=== PATIENT | female | born 1960 | race Caucasian/White ===

== ENCOUNTER → 2018-05-16 00:19 | Outpatient (CLI) | payer MEDICAID, SELFPAY ==
--- NOTE | 2018-05-16 09:59 | DI.REPORT_ITS ---
SYMPTOM/DIAGNOSIS: PATIENT WITH NL ENDOMETRIAL BX WITH PMB N95.0 POSTMENOPAUSAL BLEEDING PELVIC ULTRASOUND: Transabdominal and transvaginal examination was performed. There are no priors for comparison. The uterus measures 8.8 cm long by 4.7 cm AP by 5.8 cm transverse. The endometrial stripe is within normal limits at 0.5 cm. No myometrial mass is seen. Incidental note is made of a small cervical Nabothian cyst. The ovaries were not visualized transabdominally or transvaginally. No adnexal masses free pelvic fluid or hydronephrosis is identified. IMPRESSION: Non visualization of the ovaries, otherwise, negative examination.
== END ==
PROVIDERS: PCP Family Medicine; Visit Provider Obstetrics & Gynecology Gynecology
DX: N95.0 Postmenopausal bleeding (principal); N88.8 Other specified noninflammatory disorders of cervix uteri
CPT/HCPCS: 76830; 76856

== ENCOUNTER → 2018-05-21 12:09 | Outpatient (CLI) | payer MEDICAID, SELFPAY | PROVIDERS: PCP Family Medicine; Visit Provider Surgery | DX: K62.5 Hemorrhage of anus and rectum (principal); Z01.818 Encounter for other preprocedural examination ==

== ENCOUNTER 2018-06-13 13:03 | Outpatient (RCR) | payer MEDICAID, SELFPAY ==
--- NOTE | 2018-05-16 09:44 | NT_ITS ---
May 16, 2018 Larisa cancelled todays scheduled appt, rescheduled for follow up next week.
--- NOTE | 2018-05-23 09:30 | NT_ITS ---
May 23, 2018 Larisa showed 30 minutes late for todays scheduled appt. She was unable to be seen secondary to this. Reappointed for a later date.
--- NOTE | 2018-06-13 13:00 | PTTR_ITS ---
DATE: June 13, 2018 SUBJECTIVE: Larisa notes that she has been trying to perform her pelvic floor isolation daily. She has not seen any improvement overall at this time. She continues to note leakage with coughing especially heavy coughing spells. She is in hopes that the sensor will provide her more feedback to promote the contraction correctly. OBJECTIVE: Therapeutic procedures ([id number]). * X HEP review: Promoting pelvic floor isolation with focus on prolonged holds. * X Provided skilled instruction in proper exercise performance: via EMG biofeedback with use of internal vaginal sensor independently placed via patient. Average resting tone 2.3 mV. Average contraction to 10 mV with average hold for 1-2 seconds. With verbal cueing and use of the sensor was able to increase hold up to 5 seconds at 10 mV or greater. * X Provided skilled manual cues to facilitate proper muscle recruitment and/ or movement pattern: promoting isolation as well as cocontraction via hip adductor and abduction with use of light resistance band. Improved awareness with use of the EMG and sent sensor home with patient to ensure proper contraction. Will follow up in 2-3 weeks progressing self management program at that time. Direct treatment time: 30 minutes Total treatment time: 30 minutes
== END 2018-06-15 23:59 | disposition home or self-care (01) ==
LOC: PT 13:03
PROVIDERS: PCP Family Medicine; Referring Provider Nurse Practitioner Gerontology; Visit Provider Nurse Practitioner Gerontology
DX: N36.44 Muscular disorders of urethra (principal); N39.3 Stress incontinence (female) (male)
CPT/HCPCS: 97110

== ENCOUNTER 2018-06-28 08:16 | Outpatient (CLI) | payer MEDICAID, SELFPAY ==
[2018-06-28 10:51] LABS: ALT 16 U/L (12-78); AST 13 U/L (15-37); Albumin 3.1 g/dL (3.4-5.0); Alkaline Phosphatase 87 U/L (46-116); Anion Gap 7.4 mmol/L (3-11); BUN 11 mg/dL (7-18); Bilirubin, Total 0.3 mg/dL (0.2-1.0); CO2 27.6 mmol/L (21.0-32.0); CREATININE 1.03 mg/dL (0.55-1.02); Calcium 8.5 mg/dL (8.5-10.1); Chloride 107 mmol/L (98-107); Cholesterol 122 mg/dL (50-200); Estimated GFR 54.66 (mL/min/1.73m2); Glucose 109 mg/dL (70-100); HDL Cholesterol 49 mg/dL (40-60); LDL CHOLESTEROL 60 mg/dL (<100); Magnesium 1.7 mg/dL (1.8-2.4); Potassium 4.1 mmol/L (3.5-5.1); Sodium 142 mmol/L (136-145); Triglyceride 108 mg/dL (30-150)
== END 2018-06-28 08:36 ==
PROVIDERS: Student in an Organized Health Care Education/Training Program; PCP Family Medicine; Visit Provider Family Medicine
DX: I25.10 Atherosclerotic heart disease of native coronary artery without angina pectoris (principal)
CPT/HCPCS: 36415; 80048; 80061; 80076; 83721; 83735

== ENCOUNTER 2018-07-02 09:34 | Outpatient (CLI) | payer MEDICAID, SELFPAY ==
--- NOTE | 2018-07-02 09:00 | NS.NUTBLAN_ITS ---
Larisa returns for follow up nutritional counseling for weight management nutrition therapy. She now eats breakfast and lunch six days per week at [employer] and she reports that she has gotten used to the portions there. She comes home and she eats a normal sized dinner meal with whatever resources she has available to her. She reports that she does buy canned fruits and vegetables now and will eat those instead of higher calorie foods that she has eaten in the past. She reports that she notices she can move better. Her weight today is 319 lbs which is down 12 pounds from when we started meeting about two months ago. Acknowledged Larisa's excellent efforts at reducing her weight. Larisa would like to continue to follow up with me as she reports it is helpful for her to be accountable to someone. She will return next month.
== END 2018-07-02 09:54 ==
PROVIDERS: PCP Family Medicine; Visit Provider Dietitian, Registered
DX: E66.2 Morbid (severe) obesity with alveolar hypoventilation (principal); Z68.41 Body mass index [BMI] 40.0-44.9, adult; Z71.3 Dietary counseling and surveillance
CPT/HCPCS: 97803

== ENCOUNTER 2018-08-15 11:03 | Outpatient (CLI) | payer MEDICAID, SELFPAY ==
--- NOTE | 2018-08-15 10:56 | DI.RAD_ITS ---
SYMPTOM/DIAGNOSIS: PAIN LEFT KNEE: AP and lateral projections are provided. The joint spaces are intact. There is mild periarticular hypertrophic spurring. No joint effusion is demonstrated. The findings are consistent with mild DJD.
== END 2018-08-15 11:23 ==
PROVIDERS: PCP Family Medicine; Visit Provider Physician Assistant Surgical
DX: M25.562 Pain in left knee (principal); M17.12 Unilateral primary osteoarthritis, left knee
CPT/HCPCS: 73560

== ENCOUNTER 2018-08-29 07:28 | Emergency (ER) | payer MEDICAID, SELFPAY ==
[2018-08-29] VITALS (35 sets, daily range): BP systolic 53–219; BP diastolic 28–172; PULSE 0–143; RESP 13–95; O2SAT 81–100
[2018-08-29] MEDS: Amiodarone 150 MG/3 ML VIAL IVP (07:27)
[2018-08-29] MEDS: Sodium Bicarbonate 50 MEQ/50 ML SYR IVP ×3 (07:27→08:15)
[2018-08-29 08:09] LABS: HCO3 11 mmol/L (22-28); pO2 368 mmHg (83-108); sO2 99 % (94-98); tCO2 12 mmol/L (22-29)
--- NOTE | 2018-08-29 08:12 | DI.RAD_ITS ---
SYMPTOMS/DIAGNOSIS: CARDIAC ARREST SUPINE AP CHEST: The patient has reportedly been resuscitated from cardiac arrest. There is an ET tube in good position. There is an NG tube, the tip of which lies below the lower margin of the film, presumably in the stomach. Mild bilateral pulmonary interstitial prominences noted, which is nonspecific and may represent shock lung or CHF. No gross pneumothorax. Appropriate follow-up studies requested.
[2018-08-29 08:15] LABS: FIO2 100 %; Site Right Radial; pCO2 70 mmHg (34-47); pH 6.82 (7.35-7.45)
[2018-08-29 08:21] LABS: Abs Immature Grans 0.66 k/cumm (0.0-0.09); HCT 42.1 % (36.0-46.0); HGB 12.7 g/dL (12.0-15.5); Mean Corp. HGB Concentration 30.2 g/dL (32.0-36.0); Mean Corpuscular Hemoglobin 29.9 pg (27.0-33.0); Mean Corpuscular Volume 99.1 fL (80-95); Mean Platelet Volume 10.5 fL (8.0-11.0); RBC 4.25 m/cumm (4.00-5.20); RBC Distribution Width 14.4 % (11.7-14.6); White Blood Cell Count 14.85 k/cumm (4.4-10.8)
[2018-08-29 08:30] LABS: INR 1.1 (1.0-3.5); PTT Activated 51.2 sec (21.0-31.4); Prothrombin Time 10.9 sec (9.3-10.8)
[2018-08-29] MEDS: Normal Saline 1,000 ML 1000 ML IV ×4 (08:31→10:40)
[2018-08-29 08:32] LABS: ALT 75 U/L (12-78); AST 83 U/L (15-37); Albumin 2.6 g/dL (3.4-5.0); Alkaline Phosphatase 104 U/L (46-116); BUN 15 mg/dL (7-18); Bilirubin, Total 0.2 mg/dL (0.2-1.0); Estimated GFR 32.88 (mL/min/1.73m2); Glucose 311 mg/dL (70-100); Magnesium 2.7 mg/dL (1.8-2.4); Sodium 140 mmol/L (136-145); Total Protein 6.9 g/dL (6.4-8.2); Troponin I 0.04 ng/mL (0.00-0.06)
--- NOTE | 2018-08-29 08:42 | W.ED.GENAD ---
Discharge Plan Disposition Patient Disposition: Discharge Details Chief Complaint: CodeBlue Clinical Impression: Cardiac arrest Primary Care Provider: Irene Chu ED Provider: Terry Curry Discharge Data Date/Time: 08/29/18 10:00 Medical Decision Making This is a 58-year-old female with a past medical history of coronary artery disease, COPD, cardiac arrest who presents for evaluation of cardiac arrest. Patient was calling 911 for shortness of breath, when she went unresponsive on the phone. EMS performed high-quality CPR for 25 minutes, developed Ross, then she went into cardiac arrest again with V. fib/V. tach, 3 shocks were given multiple doses of epi and amiodarone were given. After 45 minutes of resuscitation she still had no return to spontaneous circulation was brought to the ER. Here in the ED compressions were continued, multiple rounds of epinephrine, 30 epi drip, amiodarone, and bicarb were administered. Eventually after 30 minutes of of continued CPR the patient had Rosc. Anesthesia performed and intubation with the patient. Left femoral central line was placed. Unfortunately this was very short-lived, the patient again went into ROSC. CPR was started again. Family was contacted, and I discussed the case with the daughter who states that she wants everything done. Patient eventually achieved Rosc again on a second epinephrine drip. Currently she finished her second liter of a dirty epi drip, 4 L normal saline total. She is ventilating well, has a low blood pressure, was started on a formal epinephrine drip at initially 10, and now 20 mics. Family states that they are going to try to make it to the ER to see the patient. Laboratory workup has returned and demonstrates notable acidemia, multiple doses of bicarb have been given. I did relate to the family the low likelihood of a good and outcome, and they understand this. Additionally bedside physical exam demonstrates no corneal reflex, and fixed and dilated pupils at this time. EKG shows no signs of STEMI I do not think that TPA is indicated. 8:03 AM Rate 71, intervals normal, sinus rhythm, no ST elevation or depression, inverted T wave in V1, no Q waves. 9:39 AM Patient underwent 2 repeat episodes of Ross and subsequent CPR, most recent episode lasted greater than 30+ minutes of compressions, repeat doses of epinephrine, epi drip going at 20 mics and in spite of all this the patient had continued PEA with no organized rhythm or retained of spontaneous circulation. In spite of everything performed were unable to bring the patient back. Her daughter was at bedside, evaluate the scenario, and because of medical futility we did have to call the patient's time of at 9:18 AM. Bedside ultrasound demonstrated no signs of organized cardiac activity. We did contact the [facility] medical inpatient services and discussed the case with him. Myself and Travon both feel that this was from natural causes. I discussed the case with the family. All questions were answered. Patient will be transferred to the [facility]. Cause of cardiac arrest compounded by history of coronary artery disease, respiratory disease, morbid obesity. HPI General Date/Time Provider Initiated Documentation: 08/29/18 08:41. HPI Narrative: This is a 58-year-old female with a past medical history of coronary artery disease, respiratory disease, who presents today for cardiac arrest. Per EMS the patient called 911 for shortness of breath and while on the phone she stopped talking. When EMS arrived she was noted to be in PEA. Chest compressions were performed for 25 minutes, multiple doses of epinephrine and high quality CPR were provided and she had Kenny after the initial 25 minutes. She developed a normal blood pressure, a strong pulse, but shortly thereafter still under EMS custody the patient again went into cardiac arrest. During that time she was noted to be in a combination of PEA and V. fib/V. tach. 3 shocks were administered, one dose of 300 mg amiodarone was administered and multiple doses of epinephrine in conjunction with high-quality CPR were provided for an additional 45 minutes. Patient was then brought to the ER after 1 hour of resuscitation still in cardiac arrest. Currently the patient has no complaints secondary to be obtunded and in cardiac arrest, Jeff Combee is in place, right-sided IO is in place. No other changes. Patient is noted to have a history of coronary artery disease, hypertension, high cholesterol, and previous cardiac arrest. Related Data Home Medications Medication Instructions Recorded Confirmed omeprazole [Prilosec] 20 mg PO DAILY 04/25/14 08/15/18 albuterol sulfate [Proventil HFA] 2 puff INHALATION Q4H PRN PRN 08/23/15 08/15/18 amlodipine [Norvasc] 5 mg PO DAILY 08/23/15 08/15/18 furosemide 20 mg PO DAILY AM 12/05/15 08/15/18 bupropion HCl 1 tab PO BID 10/18/16 08/15/18 potassium chloride 1 tab PO BID 10/18/16 08/15/18 aspirin [Aspir-81] 81 mg PO DAILY 07/04/17 08/15/18 tiotropium bromide [Spiriva with 1 puff INHALATION DAILY 07/04/17 08/10/18 HandiHaler] ibuprofen 800 mg PO TID PRN PRN 08/02/17 08/15/18 benzonatate 200 mg PO TID PRN #15 cap 12/28/17 08/15/18 guaifenesin [Mucinex] 600 mg PO BID #10 tabcr 12/28/17 08/15/18 Oxygen 04/17/18 08/15/18 albuterol sulfate 2.5 mg INHALATION PRN PRN NS 04/17/18 08/15/18 ipratropium-albuterol 3 ml INHALATION QID NS 04/17/18 08/15/18 lisinopril 5 mg PO DAILY tab-cap NS 04/17/18 08/15/18 mometasone-formoterol [Dulera] 2 puff INHALATION Q12H PRN 04/17/18 08/15/18 inhaler NS prednisone 60 mg PO DAILY #9 tab-cap NS 04/17/18 08/15/18 roflumilast [Daliresp] 500 mcg PO DAILY tab-cap NS 04/17/18 08/15/18 norethindrone acetate 5 mg tablet 5 mg PO DAILY #30 tab 08/10/18 08/15/18 prednisone 5 mg tablet 5 mg PO BID #30 tab 08/15/18 08/15/18 Previous Rx's Medication Instructions Recorded benzonatate 200 mg PO TID PRN #15 cap 12/28/17 guaifenesin [Mucinex] 600 mg PO BID #10 tabcr 12/28/17 norethindrone acetate 5 mg tablet 5 mg PO DAILY #30 tab 08/10/18 prednisone 5 mg tablet 5 mg PO BID #30 tab 08/15/18 Allergies Allergy/AdvReac Type Severity Reaction Status Date / Time No Known Allergies Allergy Verified 08/15/18 10:39 Review of Systems Review of Systems All systems reviewed & are unremarkable except as noted in HPI and below PFSH Medical History CAD (coronary artery disease) COPD (chronic obstructive pulmonary disease) Chronic anxiety Chronic pain syndrome GERD (gastroesophageal reflux disease) HTN (hypertension) History of ST elevation myocardial infarction (STEMI) Hyperlipidemia Lumbar disc disease Morbid obesity Postmenopausal bleeding (04/30/18) Right knee pain Spondylolisthesis Tobacco dependency Social History number of children: 4 Smoking/Tobacco Use Status: Current every day substance use type: marijuana Surgical History Coronary Stent LAMINECTOMY LIGAMENT INJECTION , Ectopic Female Reproductive History Menstrual Menopause type: natural (Onset in her 50s. Abnormal uterine bleeding H 58) Exam Narrative Exam Narrative: GEN: unresponsive, in extremis SKIN: pale, cool NECK: no signs of trauma HENT: normocephalic atraumatic CV: PEA, no pulses, CPR in progress RESP: no spontaneous respirations, intubated ABD: soft MSK: no spontaneous movements, no obvious deformity BACK: no obvious trauma NEURO: unresponsive, absent pupillary reflex, corneal reflex, gag, and no spontaneous movements PSYCH: unresponsive Course Lab/Test Results Lab/Test Results: Laboratory Tests Range/Units 08/29/18 08/29/18 07:30 08:06 PT (9.3-10.8) sec 10.9 H INR (1.0-3.5) 1.1 APTT (21.0-31.4) sec 51.2 H Sample Site Right radial pCO2 (34-47) mmHg 70 H* pO2 (83-108) mmHg 368 H O2 Saturation (94-98) % 99 H ABG pH (7.35-7.45) 6.82 L* ABG HCO3 (22-28) mmol/L 11 L ABG Total CO2 (22-29) mmol/L 12 L ABG Base Excess (-3-3) mmol/L FiO2 % 100
[2018-08-29 08:43] LABS: Chloride 103 mmol/L (98-107)
[2018-08-29 08:50] LABS: Potassium 7.1 mmol/L (3.5-5.1)
[2018-08-29 09:02] LABS: Absolute Neutrophil Count 2.97 k/cumm (1.2-6.7); Atypical Lymphocytes % 10
[2018-08-29 09:03] LABS: Absolute Monocyte Count 0.74 k/cumm (0.11-0.7); Nucleated RBC 2 /100WBC
[2018-08-29 09:04] LABS: RBC Morphology Normal
[2018-08-29 09:05] LABS: Platelet Count 236 x1000/uL (130-400)
[2018-08-29] MEDS: Normal Saline Flush 10 ML SYR IVP (10:23)
== END 2018-08-29 09:18 | disposition expired ==
PROVIDERS: Emergency Provider Student in an Organized Health Care Education/Training Program; PCP Family Medicine
DX: I46.2 Cardiac arrest due to underlying cardiac condition (principal); I25.10 Atherosclerotic heart disease of native coronary artery without angina pectoris; E87.2 Acidosis; Z95.5 Presence of coronary angioplasty implant and graft; Z86.74 Personal history of sudden cardiac arrest; I10 Essential (primary) hypertension; J44.9 Chronic obstructive pulmonary disease, unspecified; F17.210 Nicotine dependence, cigarettes, uncomplicated
CPT/HCPCS: 31500; 36415; 36556; 51702; 80053; 82805; 92950; 93005; 96361; 96365; 96375; 96376; 99285; 71045; 83735; 84484; 85025; 85610; 85730; 93010; J0171